=== PATIENT | female | born 1940 | race Caucasian/White ===

== ENCOUNTER 2017-07-13 14:30 | Inpatient (IN) | payer OTHER ==
[~2017-07-13] VITALS: Ht 152.4 cm; Wt 56.1 kg
[2017-07-13 17:28] LABS: HEMATOCRIT 39.7 % (36.0-46.0); HEMOGLOBIN 13.3 G/DL (11.9-15.5); MCHC 33.5 G/DL (30.0-36.0); MCV 95.4 FL (83-99); PLATELET COUNT 261 K/uL (156-360); RBC DIS.WIDTH-CV 13.2 % (11.8-14.6); RED BLOOD COUNT 4.16 M/uL (3.80-5.20); WHITE BLOOD COUNT 8.2 K/uL (4.1-10.2)
[2017-07-13 17:36] LABS: CHLORIDE 97 mEq/L (99-109); POTASSIUM 3.7 mEq/L (3.7-5.4); SODIUM 140 mEq/L (136-147)
[2017-07-13 17:38] LABS: GLUCOSE 115 mg/dL (70-99)
[2017-07-13 17:42] LABS: CREATININE 0.8 mg/dL (0.6-1.3); GFR ESTIMATE (CALCULATED) > 59 mL/min/
[2017-07-13 17:43] LABS: UREA NITROGEN (BUN) 18 mg/dL (9-23)
[2017-07-13 17:49] LABS: TROP-I INTERPRETATION NEGATIVE; TROPONIN-I 0.03 ng/mL (0.0-0.30)
[2017-07-13 18:03] LABS: INTER. NORMALIZED RATIO 1.2
[2017-07-13 18:06] LABS: PTT 28.3 SEC (25-37)
[2017-07-13] MEDS ORDERED: LEVOTHYROXINE25 MCG PO (19:11)
[2017-07-13] MEDS ORDERED: LO-DOSE ASPIRIN81 M2 PO (19:12)
[2017-07-13] MEDS ORDERED: METOPROLOL TART25 MG PO (19:12)
[2017-07-13 21:57] LABS: TROP-I INTERPRETATION NEGATIVE; TROPONIN-I 0.03 ng/mL (0.0-0.30)
[2017-07-13 22:00] VITALS: BP 113/71
[2017-07-14] VITALS (7 sets, daily range): BP systolic 92–142; BP diastolic 56–80
[2017-07-14 06:19] LABS: HEMATOCRIT 34.8 % (36.0-46.0); MCH 31.8 PG (29.0-34.0); MCHC 32.2 G/DL (30.0-36.0); MCV 98.9 FL (83-99); PLATELET COUNT 200 K/uL (156-360); RBC DIS.WIDTH-CV 13.5 % (11.8-14.6); RBC DIS.WIDTH-SD 48.8 % (39-53); RED BLOOD COUNT 3.52 M/uL (3.80-5.20); WHITE BLOOD COUNT 6.3 K/uL (4.1-10.2)
[2017-07-14 06:28] LABS: CHLORIDE 107 MEQ/L (99-109); HEMOGLOBIN 11.2 G/DL (11.9-15.5); POTASSIUM 4.4 MEQ/L (3.7-5.4); SODIUM 142 MEQ/L (136-147)
[2017-07-14 06:33] LABS: CREATININE 0.6 MG/DL (0.6-1.3); GFR ESTIMATE (CALCULATED) > 59 mL/min/; UREA NITROGEN (BUN) 13 mg/dL (9-23)
[2017-07-14 06:36] LABS: GLUCOSE 86 mg/dL (70-99); TROP-I INTERPRETATION NEGATIVE; TROPONIN-I 0.01 ng/mL (0.0-0.30)
[2017-07-14 08:26] LABS: THYROTROPIN (TSH) 2.2 MIU/L (0.4-5.5)
[2017-07-14 09:26] LABS: FOLIC ACID (FOLATE) > 22.0 NG/ML (5.0-22.0)
[2017-07-15] VITALS (7 sets, daily range): BP systolic 107–152; BP diastolic 66–94
[2017-07-16] VITALS (8 sets, daily range): BP systolic 95–138; BP diastolic 61–86
[2017-07-16 05:28] LABS: BASOPHIL (%) 0.4 % (0-1); EOSINOPHIL (%) 1.7 % (0-5); EOSINOPHIL COUNT 0.1 K/uL (0-0.3); HEMATOCRIT 37.9 % (36.0-46.0); HEMOGLOBIN 12.5 G/DL (11.9-15.5); IMMATURE GRANULOCYTE (%) 0.6 % (0.0-0.7); LYMPHOCYTE (%) 7.3 % (15-42); LYMPHOCYTE COUNT 0.5 K/uL (1.0-2.8); MCH 31.3 PG (29.0-34.0); MONOCYTE (%) 10.9 % (3-12); MONOCYTE COUNT 0.8 K/uL (0-0.8); NEUTROPHIL (%) 79.1 % (45-76); NEUTROPHIL COUNT 5.7 K/uL (1.8-6.4); RBC DIS.WIDTH-CV 13.1 % (11.8-14.6); RBC DIS.WIDTH-SD 45.4 % (39-53); RED BLOOD COUNT 3.99 M/uL (3.80-5.20); WHITE BLOOD COUNT 7.2 K/uL (4.1-10.2)
[2017-07-16 05:30] LABS: PLATELET COUNT 269 K/uL (156-360)
[2017-07-16 05:54] LABS: CHLORIDE 98 MEQ/L (99-109); CREATININE 0.5 MG/DL (0.6-1.3); GFR ESTIMATE (CALCULATED) > 59 mL/min/; GLUCOSE 102 mg/dL (70-99); POTASSIUM 3.5 MEQ/L (3.7-5.4); SODIUM 141 MEQ/L (136-147); UREA NITROGEN (BUN) 5 mg/dL (9-23)
[2017-07-16 10:47] LABS: MAGNESIUM 1.9 mg/dl (1.3-2.7)
[2017-07-17 03:13] VITALS: BP 122/79
[2017-07-17 08:40] VITALS: BP 117/49
[2017-07-17 12:37] VITALS: BP 100/71
[2017-07-17 13:20] VITALS: BP 138/63
[2017-07-17 14:00] VITALS: BP 84/64
[2017-07-17 14:40] LABS: CHLORIDE 98 MEQ/L (99-109); CREATININE 0.7 MG/DL (0.6-1.3); GFR ESTIMATE (CALCULATED) > 59 mL/min/; GLUCOSE 124 mg/dL (70-99); POTASSIUM 3.7 MEQ/L (3.7-5.4); SODIUM 140 MEQ/L (136-147); UREA NITROGEN (BUN) 11 mg/dL (9-23)
[2017-07-17 19:25] VITALS: BP 126/74
[2017-07-18] VITALS (7 sets, daily range): BP systolic 98–131; BP diastolic 58–86
[2017-07-18 09:16] LABS: HEMATOCRIT 35.5 % (36.0-46.0); HEMOGLOBIN 11.4 G/DL (11.9-15.5); MCH 31.1 PG (29.0-34.0); MCHC 32.1 G/DL (30.0-36.0); MCV 96.7 FL (83-99); PLATELET COUNT 314 K/uL (156-360); RBC DIS.WIDTH-CV 13.2 % (11.8-14.6); RBC DIS.WIDTH-SD 47.2 % (39-53); RED BLOOD COUNT 3.67 M/uL (3.80-5.20); WHITE BLOOD COUNT 8.5 K/uL (4.1-10.2)
[2017-07-18 09:40] LABS: ALKALINE PHOSPHATASE 100 IU/L (3-129); ALT (GPT) 9 IU/L (3-49); AST (GOT) 10 IU/L (2-34); CHLORIDE 101 MEQ/L (99-109); CREATININE 0.6 MG/DL (0.6-1.3); GFR ESTIMATE (CALCULATED) > 59 mL/min/; GLUCOSE 104 mg/dL (70-99); MAGNESIUM 1.8 mg/dl (1.3-2.7); PHOSPHORUS 3.2 mg/dL (2.5-4.9); POTASSIUM 4.3 MEQ/L (3.7-5.4); SODIUM 141 MEQ/L (136-147); TOTAL BILIRUBIN 0.4 MG/DL (0.0-1.0); TOTAL PROTEIN 6.1 G/DL (6.4-8.3); UREA NITROGEN (BUN) 9 mg/dL (9-23)
[2017-07-19 04:10] VITALS: BP 127/80
[2017-07-19 10:45] VITALS: BP 110/68
[2017-07-19 12:12] LABS: CHLORIDE 98 MEQ/L (99-109); SODIUM 138 MEQ/L (136-147)
[2017-07-19 12:17] LABS: CREATININE 0.6 MG/DL (0.6-1.3); GFR ESTIMATE (CALCULATED) > 59 mL/min/; GLUCOSE 117 mg/dL (70-99); UREA NITROGEN (BUN) 10 mg/dL (9-23)
[2017-07-19 12:37] VITALS: BP 95/64
[2017-07-19 16:15] VITALS: BP 105/68
[2017-07-19 20:00] VITALS: BP 122/74
[2017-07-20] VITALS (7 sets, daily range): BP systolic 110–130; BP diastolic 64–82
[2017-07-20 06:44] LABS: CHLORIDE 100 MEQ/L (99-109); CREATININE 0.6 MG/DL (0.6-1.3); GFR ESTIMATE (CALCULATED) > 59 mL/min/; GLUCOSE 100 mg/dL (70-99); SODIUM 140 MEQ/L (136-147); UREA NITROGEN (BUN) 8 mg/dL (9-23)
[2017-07-21 04:17] VITALS: BP 118/66
[2017-07-21 07:57] VITALS: BP 144/79
[2017-07-21 12:22] VITALS: BP 97/59
[2017-07-21] MEDS ORDERED: XOPENEX1.25 MG/0. AEROSOL (13:34)
[2017-07-21] MEDS ORDERED: DIGOXIN125 MCG PO (13:35)
[2017-07-21] MEDS ORDERED: METOPROLOL TART25 MG PO (13:35)
[2017-07-21] MEDS ORDERED: MUCINEX600 MG PO (13:36)
[2017-07-21] MEDS ORDERED: BENZONATATE100 MG PO (13:36)
[2017-07-21] MEDS ORDERED: FAMOTIDINE20 MG PO (13:37)
[2017-07-21] MEDS ORDERED: DOCUSATE SODIU100 MG PO (13:37)
[2017-07-21] MEDS ORDERED: TYLENOL REGULA325 MG PO (13:37)
[2017-07-21] MEDS ORDERED: ZOSYN 3.373.375 GM/5 IV (13:42)
[2017-07-21] MEDS ORDERED: DUONEB 2.5-0.5 M3 ML AEROSOL (16:43)
[2017-07-21] MEDS ORDERED: HEPARIN SO5000 UNIT4 SC (16:44)
== END 2017-07-21 16:23 | DRG 312 ==
LOC: EME 14:30 → EDOF 19:54 → 5WEST 19:54 → ENRESERV 19:56 → 5WEST 21:33 → 4EAST 07-14 10:14 → 5WEST 07-14 10:14 → ENRESERV 07-17 14:01 → 4EAST 07-17 14:30
PROVIDERS: Emergency Medicine; Hospitalist; Internal Medicine Cardiovascular Disease; Physician Assistant Medical
DX: I95.1 Orthostatic hypotension (principal); I47.2 Ventricular tachycardia; J15.9 Unspecified bacterial pneumonia; J96.01 Acute respiratory failure with hypoxia; I71.2 Thoracic aortic aneurysm, without rupture; I47.1 Supraventricular tachycardia; Z95.3 Presence of xenogenic heart valve; E86.0 Dehydration; I48.0 Paroxysmal atrial fibrillation; E87.6 Hypokalemia; I10 Essential (primary) hypertension; F32.9 Major depressive disorder, single episode, unspecified; Z91.81 History of falling; M54.5 Low back pain; T65.221A Toxic effect of tobacco cigarettes, accidental (unintentional), initial encounter; Z90.2 Acquired absence of lung [part of]; Z79.82 Long term (current) use of aspirin; Z82.49 Family history of ischemic heart disease and other diseases of the circulatory system; Z83.3 Family history of diabetes mellitus
CPT/HCPCS: 71046; 71275; 72070; 72100; 80048; 80053; 82306; 82607; 82746; 83735; 84100; 84443; 84484; 85025; 85027; 85610; 85730; 87070; 87106; 87205; 87449; 87502; 87641; 93005; 93306; 94640; 94640 76; 94668; 94799; 97530 GP; 99202; 99281; 99285; G0378; J0696; J1160; J1644; J2270; J2543; J3370; J7030; J7050

== ENCOUNTER 2017-07-21 15:29 | Inpatient (IN) | payer OTHER ==
[~2017-07-21] VITALS: Ht 152.4 cm; Wt 57.0 kg
[~2017-07-21 15:29] MED LIST: BENZONATATE100 MG PO; DIGOXIN125 MCG PO; DOCUSATE SODIU100 MG PO; FAMOTIDINE20 MG PO; LEVOTHYROXINE25 MCG PO; LO-DOSE ASPIRIN81 M2 PO; METOPROLOL TART25 MG PO; MUCINEX600 MG PO; TYLENOL REGULA325 MG PO; XOPENEX1.25 MG/0. AEROSOL; ZOSYN 3.373.375 GM/5 IV
[2017-07-21 15:53] VITALS: BP 109/69
[2017-07-21] MEDS ORDERED: DUONEB 2.5-0.5 M3 ML AEROSOL (16:43)
[2017-07-21] MEDS ORDERED: HEPARIN SO5000 UNIT4 SC (16:44)
[2017-07-21 23:42] VITALS: BP 109/67
[2017-07-22 05:19] VITALS: BP 102/65
[2017-07-22 08:57] LABS: HEMATOCRIT 34.6 % (36.0-46.0); MCH 30.5 PG (29.0-34.0); MCHC 31.8 G/DL (30.0-36.0); MCV 95.8 FL (83-99); PLATELET COUNT 406 K/uL (156-360); RBC DIS.WIDTH-CV 13.2 % (11.8-14.6); RBC DIS.WIDTH-SD 47.1 % (39-53); RED BLOOD COUNT 3.61 M/uL (3.80-5.20); WHITE BLOOD COUNT 7.6 K/uL (4.1-10.2)
[2017-07-22 09:26] LABS: ALBUMIN 3.1 G/DL (3.2-4.8); ALKALINE PHOSPHATASE 87 IU/L (3-129); ALT (GPT) 8 IU/L (3-49); AST (GOT) 12 IU/L (2-34); CHLORIDE 101 MEQ/L (99-109); CREATININE 0.6 MG/DL (0.6-1.3); GFR ESTIMATE (CALCULATED) > 59 mL/min/; GLUCOSE 123 mg/dL (70-99); POTASSIUM 4.2 MEQ/L (3.7-5.4); SODIUM 142 MEQ/L (136-147); TOTAL PROTEIN 6.1 G/DL (6.4-8.3); UREA NITROGEN (BUN) 10 mg/dL (9-23)
[2017-07-22 09:29] LABS: TOTAL BILIRUBIN 0.3 MG/DL (0.0-1.0)
[2017-07-22 15:01] VITALS: BP 113/70
[2017-07-23 05:57] VITALS: BP 132/78
[2017-07-23 15:35] VITALS: BP 133/82
[2017-07-24 05:50] VITALS: BP 140/93
[2017-07-24 11:45] VITALS: BP 126/82
[2017-07-24 15:40] VITALS: BP 128/74
[2017-07-25 06:18] VITALS: BP 102/60; BP 119/78
[2017-07-25 15:15] VITALS: BP 95/54
[2017-07-26 05:40] VITALS: BP 127/83
[2017-07-26 15:17] VITALS: BP 113/77
[2017-07-26 21:05] VITALS: BP 110/66
[2017-07-27 04:08] VITALS: BP 136/87
[2017-07-27 04:51] LABS: HEMATOCRIT 33.6 % (36.0-46.0); HEMOGLOBIN 10.9 G/DL (11.9-15.5); MCH 31.4 PG (29.0-34.0); MCHC 32.4 G/DL (30.0-36.0); MCV 96.8 FL (83-99); PLATELET COUNT 386 K/uL (156-360); RBC DIS.WIDTH-CV 14.3 % (11.8-14.6); RBC DIS.WIDTH-SD 49.5 % (39-53); RED BLOOD COUNT 3.47 M/uL (3.80-5.20); WHITE BLOOD COUNT 9.4 K/uL (4.1-10.2)
[2017-07-27 08:29] LABS: ALBUMIN 3.3 G/DL (3.2-4.8); CHLORIDE 103 MEQ/L (99-109); POTASSIUM 3.9 MEQ/L (3.7-5.4); SODIUM 143 MEQ/L (136-147); TOTAL BILIRUBIN 0.3 MG/DL (0.0-1.0)
[2017-07-27 08:45] LABS: ALKALINE PHOSPHATASE 99 IU/L (3-129); CREATININE 0.7 MG/DL (0.6-1.3); GFR ESTIMATE (CALCULATED) > 59 mL/min/; GLUCOSE 86 mg/dL (70-99); TOTAL PROTEIN 6.2 G/DL (6.4-8.3); UREA NITROGEN (BUN) 16 mg/dL (9-23)
[2017-07-27 08:46] LABS: ALT (GPT) 30 IU/L (3-49); AST (GOT) 20 IU/L (2-34)
[2017-07-27 15:16] VITALS: BP 111/95
[2017-07-28 05:54] VITALS: BP 115/74
[2017-07-28] MEDS ORDERED: FAMOTIDINE20 MG PO (09:15)
[2017-07-28] MEDS ORDERED: SPIRIVA RESPIMAT4 GM IH (09:15)
[2017-07-28] MEDS ORDERED: ADVAIR HFA120 INHALA IH (09:15)
[2017-07-28] MEDS ORDERED: FLORASTOR250 MG PO (09:15)
[2017-07-28] MEDS ORDERED: DIGOXIN125 MCG PO (09:15)
[2017-07-28] MEDS ORDERED: LOPRESSOR50 MG PO (09:15)
[2017-07-28] MEDS ORDERED: MUCINEX600 MG PO (09:15)
== END 2017-07-28 15:25 | disposition home health service (06) | DRG 945 ==
LOC: 3WEST 15:29 → ENPENDDIS 07-28 → 3WEST 07-28 15:25
PROVIDERS: Physical Medicine & Rehabilitation Pain Medicine
PROC: F07M0ZZ Range of Motion and Joint Mobility Treatment of Musculoskeletal System - Whole Body (ICD-10-PCS; principal; 2017-07-21)
DX: R53.1 Weakness (principal); R55 Syncope and collapse; J44.1 Chronic obstructive pulmonary disease with (acute) exacerbation; J44.0 Chronic obstructive pulmonary disease with (acute) lower respiratory infection; J15.9 Unspecified bacterial pneumonia; J90 Pleural effusion, not elsewhere classified; I71.2 Thoracic aortic aneurysm, without rupture; E88.09 Other disorders of plasma-protein metabolism, not elsewhere classified; D64.9 Anemia, unspecified; I47.1 Supraventricular tachycardia; E03.9 Hypothyroidism, unspecified; I10 Essential (primary) hypertension; J98.11 Atelectasis; E77.8 Other disorders of glycoprotein metabolism; Z95.3 Presence of xenogenic heart valve; M85.80 Other specified disorders of bone density and structure, unspecified site; M51.36 Other intervertebral disc degeneration, lumbar region; Z90.2 Acquired absence of lung [part of]
CPT/HCPCS: 71045; 71046; 80053; 85027; 87070; 87205; 87493; 94640 76; 94799; 97110 GO; 97530 GP; 99202; J1650; J2543; J7050; J7512